=== PATIENT | male | born 1950 | race Caucasian/White ===

== ENCOUNTER 2020-10-02 15:12 | Emergency (ER) | payer MEDICARE, OTHER ==
[~2020-10-02] VITALS: Ht 182.9 cm; Wt 79.4 kg
[2020-10-02] MEDS ORDERED: BUSPIRONE HCL15 MG PO (15:25)
[2020-10-02] MEDS ORDERED: NEXIUM40 M2 PO (15:25)
[2020-10-02] MEDS ORDERED: NORCO7.5 PO (15:25)
[2020-10-02] MEDS ORDERED: PAXIL20 MG PO (15:25)
[2020-10-02] MEDS ORDERED: GRALISE600 MG PO (15:26)
[2020-10-02] MEDS ORDERED: NORVASC5 M1 PO (15:26)
[2020-10-02] MEDS ORDERED: PROSCAR 5MG TABL5 MG PO (15:27)
[2020-10-02 16:06] VITALS: BP 145/70
== END 2020-10-02 16:07 | disposition home or self-care (01) ==
LOC: M.ERS 15:12
DX: S01.81XA Laceration without foreign body of other part of head, initial encounter (principal); S80.212A Abrasion, left knee, initial encounter; S60.512A Abrasion of left hand, initial encounter; Z90.89 Acquired absence of other organs; Z90.49 Acquired absence of other specified parts of digestive tract; Z88.5 Allergy status to narcotic agent; Z88.0 Allergy status to penicillin; Z88.8 Allergy status to other drugs, medicaments and biological substances; W01.0XXA Fall on same level from slipping, tripping and stumbling without subsequent striking against object, initial encounter; Y93.89 Activity, other specified; Y92.89 Other specified places as the place of occurrence of the external cause; Y99.8 Other external cause status

== ENCOUNTER 2020-10-09 12:49 | Emergency (ER) | payer MEDICARE, OTHER ==
[~2020-10-09] VITALS: Ht 182.9 cm; Wt 78.9 kg
[~2020-10-09 12:49] MED LIST: BUSPIRONE HCL15 MG PO; GRALISE600 MG PO; NEXIUM40 M2 PO; NORCO7.5 PO; NORVASC5 M1 PO; PAXIL20 MG PO; PROSCAR 5MG TABL5 MG PO
[2020-10-09 13:19] VITALS: BP 151/66
== END 2020-10-09 13:20 | disposition home or self-care (01) ==
LOC: M.ERS 12:49
DX: S01.81XD Laceration without foreign body of other part of head, subsequent encounter (principal); Z98.890 Other specified postprocedural states; Z90.49 Acquired absence of other specified parts of digestive tract; Z79.899 Other long term (current) drug therapy; Z88.5 Allergy status to narcotic agent; Z88.0 Allergy status to penicillin; X58.XXXD Exposure to other specified factors, subsequent encounter